=== PATIENT | female | born 1940 | race Asian ===

== ENCOUNTER → 2017-03-06 | Outpatient (CLI) | payer MEDICARE, OTHER ==
[~2017-03-06] MED LIST: AMLO-147 PO; AMLO-20 PO; ESOM40CA PO; EZET10TA3 PO; HYD25 PO; HYDR-3671 PO; HYDR25TA6 PO; LOSA100T7 PO; METO-429 PO; METO25TA7 PO; METO50TA16 PO
[2017-03-06 16:03] LABS: ALBUMIN 3.7 g/dl (3.3-4.9)
[2017-03-06 16:04] LABS: POTASSIUM 3.8 mmol/L (3.5-5.1)
[2017-03-06 16:06] LABS: ALBUMIN/GLOBULIN RATIO 1.12; BILIRUBIN,INDIRECT 0.3 mg/dl (0-1.1); BILIRUBIN,TOTAL 0.3 mg/dl (0.2-1.3); CREATININE 1.08 mg/dl (0.44-1.00)
[2017-03-06 16:07] LABS: CALCIUM 8.9 mg/dl (8.4-10.2); MAGNESIUM 1.9 mg/dl (1.7-2.5)
== END | disposition home or self-care (01) ==
LOC: LAB 15:06
PROVIDERS: ATTEND Internal Medicine
DX: I10 Essential (primary) hypertension (principal); R25.2 Cramp and spasm
CPT/HCPCS: 80053; 83735